=== PATIENT | female | born 1975 | race Hispanic/Latino ===

== ENCOUNTER 2022-03-26 22:42 | Emergency (ER) | payer OTHER ==
[~2022-03-26] VITALS: Ht 177.8 cm; Wt 131.5 kg
[2022-03-26] MEDS ORDERED: TOBREX3.5 GM OD (23:36)
[2022-03-26] MEDS ORDERED: ULTRAM 50MG50 MG PO (23:37)
[2022-03-26] MEDS ORDERED: TRAMADOL HCL 50 MG TAB PO ONE (23:45)
[2022-03-26] MEDS ORDERED: AMOX TR-K CLV1 EAC2 PO (23:47)
[2022-03-26] MEDS ORDERED: DOXYCYCLINE HY100 MG PO (23:48)
[2022-03-26] MEDS ORDERED: TRAMADOL HCL 50 MG TAB ONE (23:50)
[2022-03-27] MEDS ORDERED: ONDANSETRON ODT4 MG PO (01:00)
== END 2022-03-27 00:34 | disposition home or self-care (01) ==
LOC: FSED 22:45
DX: H57.11 Ocular pain, right eye (principal); H00.011 Hordeolum externum right upper eyelid; E11.65 Type 2 diabetes mellitus with hyperglycemia; E78.5 Hyperlipidemia, unspecified
CPT/HCPCS: 99283